=== PATIENT | male | born 1970 | race Caucasian/White ===

== ENCOUNTER 2024-11-10 08:45 | Emergency (ER) | payer SELFPAY ==
[2024-11-10 09:29] LABS: BASOPHILS ABSOLUTE AUTO 0.17 K/uL (0.00-0.20); EOSINOPHILS ABSOLUTE AUTO 0.28 K/uL (0.00-0.45); EOSINOPHILS PERCENT AUTO 3.3 % (0.0-6.0); HEMATOCRIT 46.9 % (42.0-52.0); IMMATURE GRAN ABSOLUTE AUTO 0.03 K/uL (0.00-0.05); IMMATURE GRAN PERCENT AUTO 0.4 % (0.0-0.4); LYMPHOCYTES ABSOLUTE AUTO 3.37 K/uL (1.00-4.80); LYMPHOCYTES PERCENT AUTO 39.7 % (24.0-44.0); MEAN CORPUSCULAR HEMOGLOBIN 31.1 pg (28.0-32.0); MEAN CORPUSCULAR HGB CONC 34.1 g/dL (32.0-36.0); MEAN CORPUSCULAR VOLUME 91.1 fL (83.0-99.0); MEAN PLATELET VOLUME 10.4 fL (9.4-12.4); MONOCYTES PERCENT AUTO 9.4 % (0.0-8.0); NEUTROPHILS ABSOLUTE AUTO 3.84 K/uL (1.80-7.70); NEUTROPHILS PERCENT AUTO 45.2 % (41.0-71.0); PLATELET COUNT,PLT 254 K/uL (150-400); RED BLOOD CELL COUNT 5.15 M/uL (4.52-5.90); WHITE BLOOD CELL COUNT,WBC 8.49 K/uL (3.9-11.3)
[2024-11-10 09:46] LABS: CARBON DIOXIDE,CO2 30.3 mmol/L (21.0-32.0); CREATININE 0.9 mg/dL (0.8-1.3); EST CRCL DRUG DOSING (CG) 90.78 mL/min; POTASSIUM,K 4.4 mmol/L (3.5-5.1)
[2024-11-10] MEDS ORDERED: Lidocaine 4% 1 each Patch ONE (09:49)
[2024-11-10] MEDS: Lidocaine 4% 1 each Patch TOP ONE (09:53)
[2024-11-10 10:25] LABS: APPEARANCE,URINE CLEAR; BILIRUBIN,URINE NEGATIVE (NEGATIVE); COLOR,URINE YELLOW; GLUCOSE,URINE NEGATIVE (NEGATIVE); KETONES,URINE NEGATIVE (NEGATIVE); LEUKOCYTE ESTERASE,URINE NEGATIVE (NEGATIVE); NITRITE,URINE NEGATIVE (NEGATIVE); OCCULT BLOOD,URINE NEGATIVE (NEGATIVE); PROTEIN,URINE NEGATIVE (NEGATIVE); UROBILINOGEN,URINE 0.2 EU/dL (<2.0)
== END 2024-11-10 10:58 | disposition home or self-care (01) ==
LOC: MW.ED 08:45
DX: M54.50 Low back pain, unspecified (principal); I10 Essential (primary) hypertension; F17.210 Nicotine dependence, cigarettes, uncomplicated; Z75.8 Other problems related to medical facilities and other health care
CPT/HCPCS: 36415; 80048; 81003; 85025; 99283; A9270